=== PATIENT | female | born 1985 | race African-American/Black ===

== ENCOUNTER 2021-09-23 09:27 | Inpatient (IN) | payer OTHER ==
[~2021-09-23] VITALS: Ht 213.4 cm; Wt 5.0 kg
== END 2021-09-29 23:21 | disposition home or self-care (01) | DRG 641 ==
LOC: ER 09:27 → MEDI 09-24 14:30
PROVIDERS: ADMIT Internal Medicine; ATTEND Internal Medicine
PROC: BG44ZZZ Ultrasonography of Thyroid Gland (ICD-10-PCS; principal; 2021-09-27)
DX: E87.6 Hypokalemia (principal); N39.0 Urinary tract infection, site not specified; E83.42 Hypomagnesemia; E83.52 Hypercalcemia; R10.13 Epigastric pain; E86.0 Dehydration; E87.8 Other disorders of electrolyte and fluid balance, not elsewhere classified; K29.60 Other gastritis without bleeding; R11.10 Vomiting, unspecified; E05.90 Thyrotoxicosis, unspecified without thyrotoxic crisis or storm; Z20.822 Contact with and (suspected) exposure to COVID-19

== ENCOUNTER 2021-11-03 17:01 | Emergency (ER) | payer OTHER ==
[~2021-11-03] VITALS: Ht 170.2 cm; Wt 78.0 kg
[2021-11-03] MEDS ORDERED: TOPROL XL25 M1 (17:10)
[2021-11-03] MEDS ORDERED: COZAAR50 MG (17:11)
[2021-11-03] MEDS ORDERED: TAPAZOLE5 MG PO (17:11)
[2021-11-03] MEDS ORDERED: PEPCID AC20 MG PO (19:26)
[2021-11-03] MEDS ORDERED: ZOFRAN8 MG PO (19:26)
== END 2021-11-03 19:42 | disposition home or self-care (01) ==
LOC: ER 17:01
DX: R11.2 Nausea with vomiting, unspecified (principal)

== ENCOUNTER 2023-03-22 15:06 | Outpatient (CLI) | payer OTHER ==
[~2023-03-22 15:06] MED LIST: COZAAR50 MG; PEPCID AC20 MG PO; TAPAZOLE5 MG PO; TOPROL XL25 M1; ZOFRAN8 MG PO
== END 2023-03-22 16:49 | disposition home or self-care (01) ==
LOC: PRENATAL 15:06
PROVIDERS: ATTEND Obstetrics & Gynecology Maternal & Fetal Medicine
DX: O36.80X0 Pregnancy with inconclusive fetal viability, not applicable or unspecified (principal); O09.529 Supervision of elderly multigravida, unspecified trimester; O99.280 Endocrine, nutritional and metabolic diseases complicating pregnancy, unspecified trimester; O10.019 Pre-existing essential hypertension complicating pregnancy, unspecified trimester; Z36 Encounter for antenatal screening of mother; Z3A.12 12 weeks gestation of pregnancy

== ENCOUNTER 2023-05-14 12:42 | Outpatient (CLI) | payer OTHER | END 2023-05-14 14:35 | disposition home or self-care (01) | LOC: PRENATAL 12:42 | PROVIDERS: ATTEND Obstetrics & Gynecology Maternal & Fetal Medicine | DX: O35.9XX0 Maternal care for (suspected) fetal abnormality and damage, unspecified, not applicable or unspecified (principal); O09.529 Supervision of elderly multigravida, unspecified trimester; O99.280 Endocrine, nutritional and metabolic diseases complicating pregnancy, unspecified trimester; O10.019 Pre-existing essential hypertension complicating pregnancy, unspecified trimester; Z3A.19 19 weeks gestation of pregnancy ==

== ENCOUNTER 2023-06-14 22:27 | Outpatient (CLI) | payer OTHER ==
[2023-06-14 23:41] LABS: HEMATOCRIT 31.2 % (36.0-45.00); HEMOGLOBIN 10.8 g/dL (12.0-15.00); MEAN CORPUSCULAR HEMOGLOBIN 28.5 pg (27.00-32.0); MEAN CORPUSCULAR HGB CONC 34.7 g/dl (32.0-36.0); PLATELET COUNT 184 K/uL (150-450); RED BLOOD COUNT 3.81 M/uL (4.00-6.00); RED CELL DISTRIBUTION WIDTH 13.9 % (11.5-14.5)
[2023-06-14 23:42] LABS: URINE APPEARANCE Clear; URINE BILIRRUBIN Negative (NEGATIVE); URINE BLOOD Large; URINE COLOR Dark Yellow; URINE GLUCOSE Negative (NEGATIVE); URINE LEUKOCYTE Moderate; URINE NITRATE Negative; URINE PROTEIN Trace (NEGATIVE)
[2023-06-14 23:45] LABS: URINE RBC 39.2 uL (0.0-20.8); URINE WBC 97.5 uL (0.0-23.2)
== END 2023-06-15 18:20 | disposition home or self-care (01) ==
LOC: OBS/DEL 22:27
PROVIDERS: ATTEND Obstetrics & Gynecology
DX: O26.892 Other specified pregnancy related conditions, second trimester (principal); N93.0 Postcoital and contact bleeding; Z3A.24 24 weeks gestation of pregnancy

== ENCOUNTER 2023-08-02 12:39 | Inpatient (IN) | payer OTHER ==
[~2023-08-02] VITALS: Ht 170.2 cm; Wt 98.9 kg
[2023-08-02] MEDS ORDERED: PRENATAL CAPLE1 EAC1 PO (15:08)
[2023-08-02 18:01] LABS: HEMATOCRIT 31.8 % (36.0-45.00); HEMOGLOBIN 10.8 g/dL (12.0-15.00); MEAN CELL VOLUME 80.5 fL (80.00-100.00); MEAN CORPUSCULAR HEMOGLOBIN 27.4 pg (27.00-32.0); PLATELET COUNT 230 K/uL (150-450); RED BLOOD COUNT 3.95 M/uL (4.00-6.00); RED CELL DISTRIBUTION WIDTH 12.6 % (11.5-14.5)
[2023-08-02 18:02] LABS: PH,URINE 6.5 (5.0-8.0); URINE APPEARANCE Cloudy; URINE BILIRRUBIN Negative (NEGATIVE); URINE BLOOD Negative; URINE COLOR Yellow; URINE GLUCOSE Negative (NEGATIVE); URINE LEUKOCYTE Large; URINE NITRATE Negative; URINE PROTEIN Negative (NEGATIVE)
[2023-08-02 18:06] LABS: URINE WBC 636.3 uL (0.0-23.2)
[2023-08-02 18:28] LABS: CALCIUM 8.8 mg/dL (8.5-10.1); CREATININE SERUM 0.45 mg/dL (0.55-1.02); GFR 158.56; POTASSIUM 4.21 mEq/L (3.5-5.1); URINE BACTERIA > 9821.5 uL (0.0-1933); URINE EPITHELIAL CELLS > 201.7 uL (0.0-38.8); URINE MUCUS SCANT; URINE RBC 1.1 uL (0.0-20.8)
[2023-08-02 18:29] LABS: URINE BACTERIA MANY
[2023-08-05 13:57] LABS: URINE PROT QUANT 24HR 13.5 MG/DL
[2023-08-05 14:03] LABS: URINE PROT QUANT 24 HR 455.63 MG/24HR (42-225)
[2023-08-06 09:27] LABS: HEMATOCRIT 26.7 % (36.0-45.00); HEMOGLOBIN 9.2 g/dL (12.0-15.00); MEAN CELL VOLUME 80.5 fL (80.00-100.00); MEAN CORPUSCULAR HEMOGLOBIN 27.8 pg (27.00-32.0); MEAN CORPUSCULAR HGB CONC 34.6 g/dl (32.0-36.0); PLATELET COUNT 188 K/uL (150-450); RED BLOOD COUNT 3.32 M/uL (4.00-6.00); RED CELL DISTRIBUTION WIDTH 12.5 % (11.5-14.5)
[2023-08-06 09:35] LABS: INR 0.98; PROTHROMBIN TIME 10.3 SECONDS (9.0-11.5)
[2023-08-06 09:38] LABS: ALBUMIN 2.3 gm/dL (3.4-5.0); BILIRUBIN TOTAL 0.23 mg/dL (0.3-1.2); CALCIUM 8.2 mg/dL (8.5-10.1); CREATININE SERUM 0.49 mg/dL (0.55-1.02); GFR 143.72; GLOBULINA 3.3 G/DL (2.4-3.5); POTASSIUM 3.26 mEq/L (3.5-5.1); TOTAL PROTEIN 5.6 gm/dL (6.4-8.2)
== END 2023-08-07 19:51 | disposition home or self-care (01) | DRG 832 ==
LOC: OBS/DEL 12:39 → OB/GYN 17:15 → OBS/DEL 17:15 → LDR 17:15 → OB/GYN 21:43
PROVIDERS: Obstetrics & Gynecology; ADMIT Obstetrics & Gynecology; ATTEND Obstetrics & Gynecology
PROC: BY4FZZZ Ultrasonography of Third Trimester, Single Fetus (ICD-10-PCS; principal; 2023-08-02)
PROC: 4A1HXCZ Monitoring of Products of Conception, Cardiac Rate, External Approach (ICD-10-PCS; 2023-08-02)
DX: O36.5930 Maternal care for other known or suspected poor fetal growth, third trimester, not applicable or unspecified (principal); O10.013 Pre-existing essential hypertension complicating pregnancy, third trimester; O26.843 Uterine size-date discrepancy, third trimester; O36.8130 Decreased fetal movements, third trimester, not applicable or unspecified; O99.283 Endocrine, nutritional and metabolic diseases complicating pregnancy, third trimester; E05.90 Thyrotoxicosis, unspecified without thyrotoxic crisis or storm; Z3A.31 31 weeks gestation of pregnancy; Z20.822 Contact with and (suspected) exposure to COVID-19

== ENCOUNTER 2023-08-08 08:05 | Outpatient (CLI) | payer OTHER ==
[~2023-08-08 08:05] MED LIST changes: +PRENATAL CAPLE1 EAC1 PO
== END 2023-08-08 08:06 | disposition home or self-care (01) ==
LOC: PRENATAL 08:05
PROVIDERS: ATTEND Obstetrics & Gynecology Maternal & Fetal Medicine
DX: O26.849 Uterine size-date discrepancy, unspecified trimester (principal); O24.319 Unspecified pre-existing diabetes mellitus in pregnancy, unspecified trimester; O99.210 Obesity complicating pregnancy, unspecified trimester; Z3A.28 28 weeks gestation of pregnancy

== ENCOUNTER 2023-08-17 13:26 | Outpatient (CLI) | payer OTHER | END 2023-08-17 13:28 | disposition home or self-care (01) | LOC: PRENATAL 13:26 | PROVIDERS: ATTEND Obstetrics & Gynecology Maternal & Fetal Medicine | DX: O36.8199 Decreased fetal movements, unspecified trimester, other fetus (principal); O36.5990 Maternal care for other known or suspected poor fetal growth, unspecified trimester, not applicable or unspecified; Z3A.33 33 weeks gestation of pregnancy ==

== ENCOUNTER → 2023-08-23 13:37 | Outpatient (CLI) | payer OTHER | END | disposition home or self-care (01) | LOC: PRENATAL 13:37 | PROVIDERS: ATTEND Obstetrics & Gynecology Maternal & Fetal Medicine | DX: O26.849 Uterine size-date discrepancy, unspecified trimester (principal); O36.8199 Decreased fetal movements, unspecified trimester, other fetus; O09.529 Supervision of elderly multigravida, unspecified trimester; O99.280 Endocrine, nutritional and metabolic diseases complicating pregnancy, unspecified trimester; O36.5990 Maternal care for other known or suspected poor fetal growth, unspecified trimester, not applicable or unspecified; O10.019 Pre-existing essential hypertension complicating pregnancy, unspecified trimester; Z3A.34 34 weeks gestation of pregnancy ==

== ENCOUNTER 2023-09-11 14:18 | Inpatient (IN) | payer OTHER ==
[~2023-09-11] VITALS: Ht 170.2 cm; Wt 102.5 kg
[2023-09-11 16:27] LABS: HEMATOCRIT 30.7 % (36.0-45.00); HEMOGLOBIN 10.3 g/dL (12.0-15.00); MEAN CELL VOLUME 76.1 fL (80.00-100.00); MEAN CORPUSCULAR HEMOGLOBIN 25.5 pg (27.00-32.0); MEAN CORPUSCULAR HGB CONC 33.5 g/dl (32.0-36.0); PLATELET COUNT 205 K/uL (150-450); RED BLOOD COUNT 4.04 M/uL (4.00-6.00); RED CELL DISTRIBUTION WIDTH 13.8 % (11.5-14.5); URINE APPEARANCE Clear; URINE BILIRRUBIN Negative (NEGATIVE); URINE BLOOD Negative; URINE COLOR Yellow; URINE GLUCOSE Negative (NEGATIVE); URINE LEUKOCYTE Moderate; URINE NITRATE Negative; URINE PROTEIN Negative (NEGATIVE)
[2023-09-11 16:29] LABS: URINE BACTERIA 4098.6 uL (0.0-1933); URINE EPITHELIAL CELLS 53.9 uL (0.0-38.8); URINE RBC 2.4 uL (0.0-20.8); URINE WBC 117.6 uL (0.0-23.2)
[2023-09-11 16:48] LABS: INR 0.94; PARTIAL THROMBOPLASTIN TIME 26.2 SECONDS (22.0-34.0); PROTHROMBIN TIME 9.9 SECONDS (9.0-11.5)
[2023-09-11 17:00] LABS: CALCIUM 8.7 mg/dL (8.5-10.1); CREATININE SERUM 0.48 mg/dL (0.55-1.02); GFR 147.18; POTASSIUM 4.27 mEq/L (3.5-5.1)
[2023-09-12] MEDS ORDERED: CEFAZOLIN SODIUM 1,000 MG VIAL IV SCH (07:45)
[2023-09-12] MEDS ORDERED: AMPICILLIN SODIUM 2,000 MG VIAL IV ONE (07:45)
[2023-09-12] MEDS ORDERED: OXYTOCIN 10 UNITS/ML VIAL ONE ×2 (08:35→16:28)
[2023-09-12] MEDS ORDERED: ERYTHROMYCIN BASE 3.5 GM OINT...G. OP ONE (08:36)
[2023-09-12] MEDS ORDERED: OXYTOCIN 10 UNITS/ML VIAL IV ONE (09:30)
[2023-09-12] MEDS ORDERED: ERYTHROMYCIN BASE 1 GM TUBE OP ONE (09:30)
[2023-09-12] MEDS ORDERED: RINGERS SOLUTION,LACTATED 1,000 ML IV SCH (10:30)
[2023-09-12] MEDS ORDERED: MORPHINE SULFATE 4 MG/ML CARTRIDGE IV PRN (10:30)
[2023-09-12] MEDS ORDERED: OXYTOCIN 1,000 ML IV SCH (10:30)
[2023-09-12 11:28] LABS: ABG PO2 23.6 mmHg (80-100); ABG pCO2 49.6 mmHg (35-45); BICARBONATE 22.2 mmol/l (23-25); SaO2 31.6 %; Tco2 23.8 mmol/l
[2023-09-12 11:29] LABS: o2 21 %
[2023-09-12] MEDS ORDERED: SIMETHICONE 125 MG CAPSULE PO SCH (13:00)
[2023-09-12] MEDS ORDERED: IBUprofen 400 MG TABLET PO PRN (17:00)
[2023-09-12] MEDS ORDERED: DOCUSATE SODIUM 100MG CAP PO SCH (17:00)
[2023-09-12 17:30] LABS: HEMATOCRIT 30.9 % (36.0-45.00); HEMOGLOBIN 10.1 g/dL (12.0-15.00); MEAN CELL VOLUME 77.5 fL (80.00-100.00); MEAN CORPUSCULAR HEMOGLOBIN 25.4 pg (27.00-32.0); MEAN CORPUSCULAR HGB CONC 32.8 g/dl (32.0-36.0); PLATELET COUNT 193 K/uL (150-450); RED BLOOD COUNT 3.99 M/uL (4.00-6.00); RED CELL DISTRIBUTION WIDTH 13.5 % (11.5-14.5)
== END 2023-09-15 17:07 | disposition home or self-care (01) | DRG 787 ==
LOC: OBS/DEL 14:18 → LDR 09-12 07:23 → O/R 09-12 07:23 → OB/GYN 09-12 07:23 → OBS/DEL 09-12 07:23 → O/R 09-12 09:38 → OB/GYN 09-12 14:15
PROVIDERS: ADMIT Obstetrics & Gynecology; ATTEND Obstetrics & Gynecology
PROC: 4A1HXCZ Monitoring of Products of Conception, Cardiac Rate, External Approach (ICD-10-PCS; 2023-09-12)
PROC: 10D00Z1 Extraction of Products of Conception, Low, Open Approach (ICD-10-PCS; principal; 2023-09-12 09:45)
DX: O32.2XX0 Maternal care for transverse and oblique lie, not applicable or unspecified (principal); O10.92 Unspecified pre-existing hypertension complicating childbirth; O36.5930 Maternal care for other known or suspected poor fetal growth, third trimester, not applicable or unspecified; O99.284 Endocrine, nutritional and metabolic diseases complicating childbirth; E05.90 Thyrotoxicosis, unspecified without thyrotoxic crisis or storm; Z3A.37 37 weeks gestation of pregnancy; Z20.822 Contact with and (suspected) exposure to COVID-19; Z37.0 Single live birth

== ENCOUNTER 2024-05-06 11:10 | Outpatient (CLI) | payer OTHER | END 2024-05-06 11:13 | disposition home or self-care (01) | LOC: PRENATAL 11:10 | PROVIDERS: ATTEND Obstetrics & Gynecology Maternal & Fetal Medicine | DX: O36.80X0 Pregnancy with inconclusive fetal viability, not applicable or unspecified (principal); Z36.82 Encounter for antenatal screening for nuchal translucency; O09.529 Supervision of elderly multigravida, unspecified trimester; O10.019 Pre-existing essential hypertension complicating pregnancy, unspecified trimester; O99.280 Endocrine, nutritional and metabolic diseases complicating pregnancy, unspecified trimester; O34.219 Maternal care for unspecified type scar from previous cesarean delivery; Z3A.12 12 weeks gestation of pregnancy ==

== ENCOUNTER 2024-06-30 11:13 | Outpatient (CLI) | payer OTHER | END 2024-06-30 11:15 | disposition home or self-care (01) | LOC: PRENATAL 11:13 | PROVIDERS: ATTEND Obstetrics & Gynecology Maternal & Fetal Medicine | DX: O44.00 Complete placenta previa NOS or without hemorrhage, unspecified trimester (principal); O09.529 Supervision of elderly multigravida, unspecified trimester; O10.019 Pre-existing essential hypertension complicating pregnancy, unspecified trimester; O99.280 Endocrine, nutritional and metabolic diseases complicating pregnancy, unspecified trimester; O34.219 Maternal care for unspecified type scar from previous cesarean delivery; Z3A.19 19 weeks gestation of pregnancy ==

== ENCOUNTER 2024-08-28 10:37 | Outpatient (CLI) | payer OTHER | END 2024-08-28 10:38 | disposition home or self-care (01) | LOC: PRENATAL 10:37 | PROVIDERS: ATTEND Obstetrics & Gynecology Maternal & Fetal Medicine | DX: O26.849 Uterine size-date discrepancy, unspecified trimester (principal); O09.529 Supervision of elderly multigravida, unspecified trimester; O10.019 Pre-existing essential hypertension complicating pregnancy, unspecified trimester; O34.219 Maternal care for unspecified type scar from previous cesarean delivery; Z3A.29 29 weeks gestation of pregnancy ==

== ENCOUNTER 2024-10-06 10:14 | Outpatient (CLI) | payer OTHER | END 2024-10-06 10:15 | disposition home or self-care (01) | LOC: PRENATAL 10:14 | PROVIDERS: ATTEND Obstetrics & Gynecology Maternal & Fetal Medicine | DX: O26.849 Uterine size-date discrepancy, unspecified trimester (principal); O36.8199 Decreased fetal movements, unspecified trimester, other fetus; O09.529 Supervision of elderly multigravida, unspecified trimester; O10.019 Pre-existing essential hypertension complicating pregnancy, unspecified trimester; O99.280 Endocrine, nutritional and metabolic diseases complicating pregnancy, unspecified trimester; O34.219 Maternal care for unspecified type scar from previous cesarean delivery; O99.019 Anemia complicating pregnancy, unspecified trimester; Z3A.34 34 weeks gestation of pregnancy ==

== ENCOUNTER 2024-11-04 13:15 | Inpatient (IN) | payer OTHER ==
[~2024-11-04] VITALS: Ht 152.4 cm; Wt 117.5 kg
[2024-11-04 13:30] LABS: URINE APPEARANCE Cloudy; URINE BILIRRUBIN Negative (NEGATIVE); URINE BLOOD Negative; URINE COLOR Yellow; URINE GLUCOSE Negative (NEGATIVE); URINE KETONE Trace (NEGATIVE); URINE LEUKOCYTE Large; URINE NITRATE Negative; URINE PROTEIN Negative (NEGATIVE)
[2024-11-04 13:31] LABS: URINE BACTERIA 6975.5 uL (0.0-1933); URINE EPITHELIAL CELLS 139.7 uL (0.0-38.8); URINE WBC 342.1 uL (0.0-23.2)
[2024-11-04 13:45] LABS: MEAN CELL VOLUME 70.5 fL (80.00-100.00); MEAN CORPUSCULAR HEMOGLOBIN 22.8 pg (27.00-32.0); MEAN CORPUSCULAR HGB CONC 32.4 g/dl (32.0-36.0); PLATELET COUNT 219 K/uL (150-450); RED BLOOD COUNT 3.98 M/uL (4.00-6.00)
[2024-11-04 13:47] LABS: HEMOGLOBIN 9.1 g/dL (12.0-15.00); RED CELL DISTRIBUTION WIDTH 17.4 % (11.5-14.5); URINE CAST 0.44 uL (0.0-1.40); URINE RBC 1.6 uL (0.0-20.8)
[2024-11-04 13:49] LABS: URINE MUCUS MODERATE
[2024-11-04 13:54] LABS: INR 0.96; PARTIAL THROMBOPLASTIN TIME 25.1 SECONDS (22.0-34.0); PROTHROMBIN TIME 10.5 SECONDS (9.0-11.5)
[2024-11-04 14:27] LABS: ALBUMIN 2.7 gm/dL (3.4-5.0); BILIRUBIN TOTAL 0.5 mg/dL (0.3-1.2); CALCIUM 8.3 mg/dL (8.5-10.1); CREATININE SERUM 0.48 mg/dL (0.55-1.02); GFR 145.52; GLOBULINA 4.1 G/DL (2.4-3.5); POTASSIUM 3.69 mEq/L (3.5-5.1); TOTAL PROTEIN 6.8 gm/dL (6.4-8.2)
[2024-11-07 12:52] LABS: RH POSITIVE
[2024-11-10] MEDS ORDERED: METHIMAZOLE10 MG PO (06:45)
[2024-11-10 06:46] VITALS: BP 127/85
[2024-11-10] MEDS ORDERED: OXYTOCIN 10 UNITS/ML VIAL ONE ×2 (07:07→12:58)
[2024-11-10] MEDS ORDERED: ERYTHROMYCIN BASE OPHT 1GM EACH TUBE OP ONE (07:08)
[2024-11-10] MEDS ORDERED: CEFAZOLIN SODIUM 1,000 MG VIAL ONE (07:33)
[2024-11-10] MEDS ORDERED: AMPICILLIN SODIUM/SULBACTAM NA 3,000 MG VIAL ONE (07:33)
[2024-11-10] MEDS ORDERED: MORPHINE SULFATE 4 MG/ML VIAL IV ONE ×2 (10:05→11:35)
[2024-11-10] MEDS ORDERED: MORPHINE SULFATE 4 MG/ML CARTRIDGE IV PRN (13:00)
[2024-11-10] MEDS ORDERED: SIMETHICONE 125 MG CAPSULE PO SCH (13:00)
[2024-11-10] MEDS ORDERED: OXYTOCIN 1,000 ML IV SCH (13:00)
[2024-11-10] MEDS ORDERED: RINGERS SOLUTION,LACTATED 1,000 ML IV SCH (13:00)
[2024-11-10 14:00] VITALS: BP 147/87
[2024-11-10 15:43] LABS: HEMATOCRIT 28.8 % (36.0-45.00); HEMOGLOBIN 9.3 g/dL (12.0-15.00); MEAN CELL VOLUME 71.3 fL (80.00-100.00); MEAN CORPUSCULAR HGB CONC 32.3 g/dl (32.0-36.0); PLATELET COUNT 173 K/uL (150-450); RED BLOOD COUNT 4.04 M/uL (4.00-6.00); RED CELL DISTRIBUTION WIDTH 18.3 % (11.5-14.5)
[2024-11-10] MEDS ORDERED: KETOROLAC TROMETHAMINE 30 MG VIAL IM STA (16:25)
[2024-11-10 17:00] VITALS: BP 138/84
[2024-11-10] MEDS ORDERED: DOCUSATE SODIUM 100MG CAP PO SCH (17:00)
[2024-11-11 00:22] VITALS: BP 130/72
[2024-11-11 08:08] VITALS: BP 125/80
[2024-11-11] MEDS ORDERED: IBUprofen 800 MG TABLET PO SCH (09:00)
[2024-11-11 15:23] VITALS: BP 128/81
[2024-11-12 00:25] VITALS: BP 133/88
[2024-11-12 08:00] VITALS: BP 132/80
[2024-11-12 16:08] VITALS: BP 112/71
[2024-11-12 16:09] VITALS: BP 135/80
[2024-11-12 23:45] VITALS: BP 122/80
[2024-11-13 08:01] VITALS: BP 137/78
== END 2024-11-13 16:45 | disposition home or self-care (01) | DRG 788 ==
LOC: O/R 11-10 06:17 → OB/GYN 11-10 06:17 → LDR 11-10 07:00 → OB/GYN 11-10 10:36 → LDR 11-10 12:28 → OB/GYN 11-13 16:45
PROVIDERS: ADMIT Obstetrics & Gynecology; ATTEND Obstetrics & Gynecology
PROC: 4A1HXCZ Monitoring of Products of Conception, Cardiac Rate, External Approach (ICD-10-PCS; 2024-11-10)
PROC: 10D00Z1 Extraction of Products of Conception, Low, Open Approach (ICD-10-PCS; principal; 2024-11-10 07:00)
DX: O34.211 Maternal care for low transverse scar from previous cesarean delivery (principal); Z3A.39 39 weeks gestation of pregnancy; Z37.0 Single live birth

== ENCOUNTER 2024-11-04 14:27 | Outpatient (CLI) | payer OTHER | END 2024-11-04 14:28 | disposition home or self-care (01) | LOC: PRENATAL 14:27 | PROVIDERS: ATTEND Obstetrics & Gynecology Maternal & Fetal Medicine | DX: Z76.1 Encounter for health supervision and care of foundling (principal) ==

== ENCOUNTER 2025-05-11 09:01 | Emergency (ER) | payer OTHER ==
[~2025-05-11] VITALS: Ht 170.2 cm; Wt 93.0 kg
[~2025-05-11 09:01] MED LIST changes: +METHIMAZOLE10 MG PO
[2025-05-11] MEDS ORDERED: SODIUM CHLORIDE 0.45 % 1,000 ML IV ONE (12:00)
[2025-05-11 12:32] LABS: BASO % 0.3 % (0.1-1.2); EOS # 0.10 (0.04-0.54); EOS % 2.6 % (0.7-7.0); LYMPH # 1.28 (1.18-3.74); LYMPH % 33.2 % (19.3-53.1); MEAN PLATELET VOLUME 10.90 fl (9.4-12.4); MONO # 0.26 (0.24-0.82); MONO % 6.8 % (4.7-12.5); NEUT # 2.20 (1.56-6.13); NEUT % 57.1 % (34.0-71.1); RED CELL DISTRIBUTION WIDTH 14.9 % (11.6-14.4)
[2025-05-11 12:50] LABS: INR 1.05
[2025-05-11 13:39] LABS: URINE APPEARANCE Cloudy; URINE BILIRRUBIN Negative (NEGATIVE); URINE BLOOD Negative; URINE COLOR Yellow; URINE GLUCOSE Negative (NEGATIVE); URINE KETONE Negative (NEGATIVE); URINE LEUKOCYTE Large; URINE NITRATE Negative; URINE PROTEIN 30 (NEGATIVE); URINE UROBILINOGEN 0.2 E.U./dl
[2025-05-11 13:44] LABS: URINE BACTERIA 6142.6 uL (0.0-1933); URINE RBC 14.5 uL (0.0-20.8); URINE WBC 805.2 uL (0.0-23.2)
[2025-05-11 13:54] LABS: URINE CAST 1.02 uL (0.0-1.40); URINE EPITHELIAL CELLS > 201.7 uL (0.0-38.8)
[2025-05-11 13:58] LABS: URINE CRYSTALS MODERATE /HPF; URINE MUCUS MODERATE
[2025-05-11 14:33] LABS: ALT/SGPT 36 U/L (12-78); AST/SGOT 14 U/L (15-37); BILIRUBIN TOTAL 0.39 mg/dL (0.3-1.2); BUN CREA RATIO 38 (7.0-25.0); CREATININE SERUM 0.40 mg/dL (0.55-1.02); GFR 179.60; GLOBULINA 3.8 G/DL (2.4-3.5); GLUCOSE FASTING 91 mg/dL (65-100); OSMOLALITY SERUM 282 MOSM/KG (275-295); PHOSPHOKINASE CREATININE 33 U/L (26-192)
[2025-05-11 14:38] LABS: TSH < 0.005 uIU/mL (0.358-3.74)
[2025-05-11] MEDS ORDERED: CEFTRIAXONE SODIUM 1,000 MG VIAL IV ONE (15:30)
[2025-05-11] MEDS ORDERED: CEFTRIAXONE SODIUM 1,000 MG VIAL IM ONE (15:45)
[2025-05-11] MEDS ORDERED: LIDOCAINE HCL 1% 10ML VIAL ONE (16:00)
[2025-05-11] MEDS ORDERED: CEFTRIAXONE SODIUM 1,000 MG VIAL ONE (16:00)
[2025-05-11] MEDS ORDERED: MACROBID 100 M100 MG PO (16:08)
== END 2025-05-11 16:48 | disposition home or self-care (01) ==
LOC: ER 09:02
DX: R00.0 Tachycardia, unspecified (principal); N39.0 Urinary tract infection, site not specified